=== PATIENT | female | born 1935 | race Caucasian/White ===

== ENCOUNTER 2017-03-18 13:10 | Inpatient (IN) | payer MEDICARE, MEDICAID ==
[~2017-03-18] VITALS: Ht 165.1 cm; Wt 111.6 kg
[2017-03-18] MEDS ORDERED: HUMALOG SQ (13:52)
[2017-03-18] MEDS ORDERED: PANT40TA4 PO (13:52)
[2017-03-18] MEDS ORDERED: PROCRIT SQ (13:52)
[2017-03-18] MEDS ORDERED: EZET10TA13 PO (13:52)
[2017-03-18] MEDS ORDERED: CLON0.1T PO (13:52)
[2017-03-18] MEDS ORDERED: PRED1TAB PO (13:52)
[2017-03-18] MEDS ORDERED: CHOL100062 PO (13:52)
[2017-03-18] MEDS ORDERED: HYDR-4075 PO (13:52)
[2017-03-18] MEDS ORDERED: LINA5TAB PO (13:52)
[2017-03-18] MEDS ORDERED: SIMV40TA5 PO (13:52)
[2017-03-18] MEDS ORDERED: METO-302 PO (13:52)
[2017-03-18] MEDS ORDERED: HYDR25TA4 PO (13:52)
[2017-03-18] MEDS ORDERED: IV NORMAL SALINE 1000 ML BAG IV ONE (14:15)
[2017-03-18 14:46] LABS: BASOPHILS % (AUTO) 0.4 % (0.0-2.0); EOSINOPHILS # (AUTO) 0.6 K/uL (0.0-0.7); EOSINOPHILS % (AUTO) 5.3 % (0.0-7.0); HEMATOCRIT 25.8 % (37-47); MEAN CORPUSCULAR HEMOGLOBIN 25.9 UUG (27.0-31.0); MEAN CORPUSCULAR HGB CONC 31 g/dL (32.0-37.0); MEAN CORPUSCULAR VOLUME 83.5 FL (81.0-99.0); MONOCYTES # (AUTO) 0.7 K/UL (0.1-1.30); MONOCYTES % (AUTO) 5.7 % (0.0-11.0); NEUTROPHILS # (AUTO) 9.8 K/UL (1.8-8.9); NEUTROPHILS % (AUTO) 80.6 % (38.5-71.5); PLATELET COUNT (AUTO) 344 K/UL (150-450); RED BLOOD CELL COUNT(AUTO) 3.09 MIL/UL (4.2-5.4); WHITE BLOOD COUNT (AUTO) 12.1 K/UL (4.0-11.2)
[2017-03-18 14:59] LABS: CARBON DIOXIDE 25 mmol/L (21-32); CHLORIDE 108 mmol/L (98-107); CREATININE 1.9 mg/dL (0.6-1.3); GLUCOSE 190 mg/dL (74-106); POTASSIUM 5.2 mmol/L (3.5-5.1); UREA NITROGEN, BLOOD 53 mg/dL (7-18)
[2017-03-18 15:05] LABS: ALANINE AMINOTRANSFERASE 29 U/L (14-59); ALKALINE PHOSPHATASE 73 U/L (50-136); ASPARTATE AMINOTRANSFERASE 18 U/L (15-37); BILIRUBIN,DIRECT 0.1 mg/dL (0.0-0.2); BILIRUBIN,TOTAL 0.5 mg/dL (0.2-1.0); TOTAL PROTEIN, SERUM 7.3 g/dL (6.4-8.2)
--- NOTE | 2017-03-18 15:15 | NUR ---
Pt back from CT, NAD noted at this time.
--- NOTE | 2017-03-18 15:30 | NUR ---
Dr Dao spoke with Andrew Falk via telephone, pt to be admitted to tele. SBAR report given to Leticia. Pt resting with NAD noted at this time.
--- NOTE | 2017-03-18 15:50 | NUR ---
Pt trans to [facility].
[2017-03-18] MEDS ORDERED: IV NS 1000 ML 1,000 ML IV PRN (16:10)
[2017-03-18 16:11] VITALS: BP 144/65
[2017-03-18] MEDS ORDERED: Z GUARD REMEDY PASTE 57 GM TUBE TOP PRN (16:15)
[2017-03-18] MEDS ORDERED: ONDANSETRON 4 MG/2 ML VIAL IV PRN (16:15)
[2017-03-18] MEDS ORDERED: ACETAMINOPHEN 325 MG TABLET PO PRN (16:15)
[2017-03-18] MEDS ORDERED: DEXTROSE 50% 50 ML DISP.SYRIN IV PRN (16:15)
[2017-03-18] MEDS ORDERED: FUROSEMIDE 40 MG/4 ML VIAL IV ONE (16:15)
--- NOTE | 2017-03-18 16:33 | NUR ---
81 YEAR OLD FEMALE ADMITTED FROM ER VIA GURNEY FOR ANEMIA IN STABLE CONDITION.ORIENT THE PT TO ROOM AND SURROUNDINGS. NOTIFIED FOR THE ADMISSION ,
[2017-03-18] MEDS: BLOOD SUGAR DIAGNOSTIC 1 EACH STRIP VI SCH ×2 (16:48→20:36)
[2017-03-18] MEDS: hydrALAZINE HCL 10 MG TABLET PO SCH (16:57)
[2017-03-18] MEDS ORDERED: INSULIN LISPRO SQ SCH (17:00)
[2017-03-18] MEDS ORDERED: INSULIN LISPRO PROTAMINE SQ SCH (17:00)
[2017-03-18] MEDS: INSULIN REGULAR, HUMAN 300 UNIT/3 ML VIAL SQ PRN ×2 (17:29→21:54)
--- NOTE | 2017-03-18 19:35 | NUR ---
PT RECEIVED IN BED, AWAKE. A/OX4. ABLE TO MAKE NEEDS KNOWN. V/S STABLE. IN NO ACUTE DISTRESS. NO C/O PAIN. PT 59 SINUS SILVESTRE WITH PAC'S ON TELE MONITOR. IVF INFUSING. COMMODE AT BEDSIDE. PT SAFETY MEASURES IMPLEMENTED. CALL LIGHT WITHIN REACH.
[2017-03-18 20:21] VITALS: BP 147/39
[2017-03-18] MEDS: SIMVASTATIN 40 MG TABLET PO SCH (20:31)
[2017-03-18] MEDS ORDERED: POTASSIUM CHLORIDE 20 MEQ TAB.PRT.SR PO ONE (21:00)
[2017-03-18] MEDS ORDERED: BUMETANIDE INJ 4 MG in IV DEXTROSE 5% 24 ML IV ONE (21:00)
[2017-03-18] MEDS ORDERED: BUMETANIDE 1 MG/4 ML VIAL ONE (21:40)
[2017-03-18] MEDS ORDERED: POTASSIUM CHLORIDE 20 MEQ TAB.PRT.SR ONE ×2 (21:41→21:59)
[2017-03-19 01:05] VITALS: BP 141/37
--- NOTE | 2017-03-19 02:58 | NUR ---
IV SITE FOUND INFILTRATED. IVF HELD. PT REFUSES TO START IV AT THIS TIME. PT STATES "THEY CAN NEVER FIND MY VEINS. I WILL WAIT TILL THE MORNING."
[2017-03-19 04:00] VITALS: BP 149/47
--- NOTE | 2017-03-19 06:19 | NUR ---
END OF SHIFT NOTES. PT HAD DIFFICULTY SLEEPING THROUGHOUT SHIFT. "PT STATES I AM NOT USED TO SLEEPING MEDICATION, I WILL JUST STICK IT OUT." PT IN STABLE CONDITION. IVF HELD. PT CONT TO REFUSE IV START. PT SINUS RHYTHM ON TELE. NEEDS ATTENDED. SAFETY MAINTAINED. CALL LIGHT WITHIN REACH.
[2017-03-19] MEDS: PANTOPRAZOLE SODIUM 40 MG TABLET.DR PO SCH (06:44)
[2017-03-19] MEDS: BLOOD SUGAR DIAGNOSTIC 1 EACH STRIP VI SCH ×4 (06:48→20:57)
[2017-03-19 06:54] LABS: BASOPHILS # (AUTO) 0.1 K/uL (0.0-8.0); BASOPHILS % (AUTO) 0.6 % (0.0-2.0); EOSINOPHILS # (AUTO) 0.8 K/uL (0.0-0.7); EOSINOPHILS % (AUTO) 6.8 % (0.0-7.0); HEMATOCRIT 26.2 % (37-47); HEMOGLOBIN 8.3 G/DL (12.0-16.0); LYMPHOCYTES # (AUTO) 1.8 K/UL (0.8-4.8); MEAN CORPUSCULAR HEMOGLOBIN 26.3 UUG (27.0-31.0); MEAN CORPUSCULAR HGB CONC 32 g/dL (32.0-37.0); MEAN CORPUSCULAR VOLUME 83.4 FL (81.0-99.0); MONOCYTES % (AUTO) 8.3 % (0.0-11.0); NEUTROPHILS # (AUTO) 8.6 K/UL (1.8-8.9); NEUTROPHILS % (AUTO) 69.3 % (38.5-71.5); PLATELET COUNT (AUTO) 356 K/UL (150-450); RED BLOOD CELL COUNT(AUTO) 3.15 MIL/UL (4.2-5.4); WHITE BLOOD COUNT (AUTO) 12.3 K/UL (4.0-11.2)
[2017-03-19 06:55] LABS: IRON, SERUM 24 ug/dL (50-175)
[2017-03-19 07:00] LABS: ALANINE AMINOTRANSFERASE 21 U/L (14-59); ALKALINE PHOSPHATASE 73 U/L (50-136); ASPARTATE AMINOTRANSFERASE 20 U/L (15-37); BILIRUBIN,TOTAL 0.7 mg/dL (0.2-1.0); CARBON DIOXIDE 26 mmol/L (21-32); CHLORIDE 107 mmol/L (98-107); CHOLESTEROL 78 mg/dL (<200); CREATININE 2.2 mg/dL (0.6-1.3); GLUCOSE 134 mg/dL (74-106); HDL CHOLESTEROL 35 mg/dL (40-60); MAGNESIUM 2.3 mg/dL (1.8-2.4); PHOSPHOROUS 5.5 mg/dL (2.5-4.9); POTASSIUM 4.8 mmol/L (3.5-5.1); TOTAL PROTEIN, SERUM 7.7 g/dL (6.4-8.2); TRIGLYCERIDES 110 MG/DL (30-150); UREA NITROGEN, BLOOD 52 mg/dL (7-18)
[2017-03-19 07:06] LABS: THYROID STIMULATING HORMONE 2.655 mIU/mL (0.358-3.740)
--- NOTE | 2017-03-19 08:00 | NUR ---
resting in bed, denies of pain, tele SB [id number], denies of shortness of breath, no nausea, needs attended, explained plan of care- verbalized understanding, call light within reach, states she takes her Zetia at nite- called pharmacy of pt's schedule
[2017-03-19] MEDS: CHOLECALCIFEROL 1,000 UNIT TABLET PO SCH (08:23)
[2017-03-19] MEDS: LINAGLIPTIN 5 MG TABLET PO SCH (08:24)
[2017-03-19] MEDS: hydrALAZINE HCL 10 MG TABLET PO SCH ×3 (08:24→17:16)
[2017-03-19] MEDS: predniSONE 10 MG TABLET PO SCH (08:24)
[2017-03-19] MEDS: METOPROLOL SUCCINATE XL 25 MG TAB.SR.24H PO SCH (08:25)
[2017-03-19] MEDS: INSULIN REGULAR, HUMAN 300 UNIT/3 ML VIAL SQ PRN ×3 (08:26→17:17)
--- NOTE | 2017-03-19 08:30 | NUR ---
states saline lock site hurts since last night, doesn't want another one restarted, states MD will have a midline inserted today
[2017-03-19] MEDS ORDERED: PANTOPRAZOLE SODIUM 40 MG TABLET.DR PO SCH (09:00)
[2017-03-19] MEDS ORDERED: predniSONE 1 MG TABLET PO SCH (09:00)
[2017-03-19] MEDS ORDERED: EZETIMIBE 10 MG TABLET PO SCH (09:00)
--- NOTE | 2017-03-19 11:00 | NUR ---
Misty Falk here- informed of no iv access- will insert midline- supplies needed prepared
[2017-03-19 11:39] VITALS: BP 135/56
[2017-03-19] MEDS ORDERED: FUROSEMIDE 40 MG/4 ML VIAL IV ONE (12:15)
--- NOTE | 2017-03-19 12:31 | NUR ---
2D Echo being done in the room
--- NOTE | 2017-03-19 14:30 | NUR ---
midline inserted on the right upper arm by Caleb Falk- tolerated well
[2017-03-19] MEDS: SOD FERRIC GLUC COMPLX/SUCROSE 125 MG in IV NORMAL SALINE 100 ML IV SCH (14:36)
[2017-03-19 16:00] VITALS: BP 125/53
--- NOTE | 2017-03-19 18:50 | NUR ---
no distress noted, all needs attended and met, voiding qs, safety and comfort measures maintained, call light within reach, tele SB 59, no dizziness noted
[2017-03-19 20:00] VITALS: BP 159/51
[2017-03-19] MEDS ORDERED: TEMAZEPAM 30 MG CAPSULE PO PRN (20:15)
[2017-03-19] MEDS ORDERED: CYANOCOBALAMIN 100 MCG TABLET PO SCH (20:15)
[2017-03-19] MEDS ORDERED: CYANOCOBALAMIN 100 MCG TABLET PO ONE (20:15)
[2017-03-19] MEDS ORDERED: POTASSIUM CHLORIDE 20 MEQ TAB.PRT.SR PO ONE (20:15)
[2017-03-19] MEDS ORDERED: MAGNESIUM OXIDE 400 MG TABLET PO ONE (20:15)
--- NOTE | 2017-03-19 20:25 | NUR ---
patient awake,alert, oriented,c/o severe cramping to legs, was notified,orders received,medication admin as ordered,NSR/SB on tele monitor,patient using bedside commode,instructed patient to call for assistance.
[2017-03-19] MEDS ORDERED: CYANOCOBALAMIN 100 MCG TABLET ONE (20:32)
[2017-03-19] MEDS: SIMVASTATIN 40 MG TABLET PO SCH (20:44)
[2017-03-19] MEDS: EZETIMIBE 10 MG TABLET PO SCH (20:44)
[2017-03-19] MEDS: CLONIDINE HCL 0.1 MG TABLET PO PRN (23:35)
[2017-03-20 00:19] VITALS: BP 166/43
--- NOTE | 2017-03-20 00:30 | NUR ---
PATIENT SLEPT WELL,NOT REQUIRED SLEEPING PILL, SB ON MONITOR, NO FURTHER LEG CRAMPING PER PATIENT.
[2017-03-20 04:00] VITALS: BP 145/52
[2017-03-20] MEDS: BLOOD SUGAR DIAGNOSTIC 1 EACH STRIP VI SCH ×4 (06:09→21:02)
[2017-03-20] MEDS: PANTOPRAZOLE SODIUM 40 MG TABLET.DR PO SCH (06:10)
--- NOTE | 2017-03-20 06:43 | NUR ---
VITAL SIGNS STABLE,PATIENT REPORTED REMAINS FEELING WEAK,CONTINUE CLOSELY MONITOR.
[2017-03-20] MEDS ORDERED: TEMAZEPAM 15 MG CAPSULE PO PRN (07:15)
[2017-03-20] MEDS: CHOLECALCIFEROL 1,000 UNIT TABLET PO SCH (08:17)
[2017-03-20] MEDS: LINAGLIPTIN 5 MG TABLET PO SCH (08:17)
[2017-03-20] MEDS: predniSONE 10 MG TABLET PO SCH (08:17)
[2017-03-20] MEDS: hydrALAZINE HCL 10 MG TABLET PO SCH ×3 (08:18→16:41)
[2017-03-20] MEDS: METOPROLOL SUCCINATE XL 25 MG TAB.SR.24H PO SCH (08:18)
[2017-03-20] MEDS: INSULIN REGULAR, HUMAN 300 UNIT/3 ML VIAL SQ PRN ×4 (08:20→21:05)
--- NOTE | 2017-03-20 09:00 | NUR ---
PT AWAKE IN BED, IN NO ACUTE DISTRESS, MIDLINE INTACT. MORNING MEDICATIONS GIVEN. ALL SAFETY AND COMFORT MEASURES ATTENDED TO, BED ALARM ON. CALL LIGHT IN REACH WILL CONTINUE TO MONITOR
[2017-03-20 12:06] VITALS: BP 132/55
[2017-03-20] MEDS: SOD FERRIC GLUC COMPLX/SUCROSE 125 MG in IV NORMAL SALINE 100 ML IV SCH (14:00)
[2017-03-20 15:46] VITALS: BP 126/52
--- NOTE | 2017-03-20 18:16 | NUR ---
PT AMBULATED ONCE AROUND THE NURSES STATION WITH WALKER AND RN, NO DISTRESS NOTED, WELL TOLERATED. NO CHANGES NOTED THROUGHOUT SHIFT, ALL SAFETY AND COMFORT MEASURES MAINTAINED, CALL LIGHT IN REACH
--- NOTE | 2017-03-20 18:19 | NUR ---
CALLED PHARMACY FOR KENALOG CREAM DUE AT 1700, TECH SAID WOULD BRING UP
[2017-03-20] MEDS: TRIAMCINOLONE ACET 0.1% CREAM 15 GM TUBE TOP SCH (18:41)
--- NOTE | 2017-03-20 20:00 | NUR ---
RECEIVED PATIENT AWAKE IN BED. A/O X4. DENIES PAIN BUT DOES C/O SEVERE ITCHING DUE TO RASH. NO RESP. DISTRESS NOTED. MID-LINE NOTED TO RIGHT UPPER ARM, INTACT AND PATENT. VSS. CALL LIGHT IN REACH. ALL NEEDS ATTENDED. WILL CONTINUE TO MONITOR.
[2017-03-20 20:10] VITALS: BP 125/62
[2017-03-20] MEDS ORDERED: diphenhydrAMINE 50 MG CAPSULE PO PRN (20:45)
[2017-03-20] MEDS: SIMVASTATIN 40 MG TABLET PO SCH (21:01)
[2017-03-20] MEDS: EZETIMIBE 10 MG TABLET PO SCH (21:01)
--- NOTE | 2017-03-20 21:05 | NUR ---
PATIENT C/O INTENSE ITCHING. KENALOG CREAM APPLIED PREVIOUSLY BY ADRIAN COREY, BUT PATIENT STATES CREAM IS INEFFECTIVE. CALLED DR. NORWOOD FOR FURTHER ORDERS. RECEIVED NEW ORDER FOR PATIENT TO HAVE BENADRYL PO AND PATIENT GIVEN 50MG PO PRN ORDERED FOR ITCHING. WILL CONTINUE TO MONITOR. ALL NEEDS ATTENDED.
--- NOTE | 2017-03-20 23:00 | NUR ---
PATIENT RESTING IN BED. BENADRYL EFFECTIVE. NO C/O ITCHING AT THIS TIME. CALL LIGHT IN REACH. ALL NEEDS ATTENDED. WILL CONTINUE TO MONITOR.
[2017-03-21 04:52] VITALS: BP 164/47
[2017-03-21] MEDS: CLONIDINE HCL 0.1 MG TABLET PO PRN (05:02)
[2017-03-21] MEDS: PANTOPRAZOLE SODIUM 40 MG TABLET.DR PO SCH (06:04)
--- NOTE | 2017-03-21 06:48 | NUR ---
PATIENT AWAKE IN BED. DENIES PAIN OR DISCOMFORT. NO RESP. DISTRESS NOTED. CALL LIGHT IN REACH. ALL NEEDS ATTENDED. WILL CONTINUE TO MONITOR.
[2017-03-21] MEDS: BLOOD SUGAR DIAGNOSTIC 1 EACH STRIP VI SCH ×2 (06:49→11:36)
[2017-03-21 06:57] LABS: BASOPHILS # (AUTO) 0.1 K/uL (0.0-8.0); BASOPHILS % (AUTO) 0.5 % (0.0-2.0); EOSINOPHILS % (AUTO) 8.8 % (0.0-7.0); HEMATOCRIT 26.7 % (37-47); HEMOGLOBIN 8.5 G/DL (12.0-16.0); LYMPHOCYTES # (AUTO) 1.7 K/UL (0.8-4.8); LYMPHOCYTES % (AUTO) 15.2 % (20.5-51.5); MEAN CORPUSCULAR HEMOGLOBIN 26.3 UUG (27.0-31.0); MEAN CORPUSCULAR HGB CONC 32 g/dL (32.0-37.0); MEAN CORPUSCULAR VOLUME 82.6 FL (81.0-99.0); MONOCYTES # (AUTO) 0.9 K/UL (0.1-1.30); MONOCYTES % (AUTO) 8.6 % (0.0-11.0); NEUTROPHILS # (AUTO) 7.3 K/UL (1.8-8.9); NEUTROPHILS % (AUTO) 66.9 % (38.5-71.5); PLATELET COUNT (AUTO) 351 K/UL (150-450); RED BLOOD CELL COUNT(AUTO) 3.23 MIL/UL (4.2-5.4)
[2017-03-21 07:05] LABS: CARBON DIOXIDE 29 mmol/L (21-32); CHLORIDE 106 mmol/L (98-107); CREATININE 2.2 mg/dL (0.6-1.3); GLUCOSE 154 mg/dL (74-106); MAGNESIUM 2.1 mg/dL (1.8-2.4); PHOSPHOROUS 4.4 mg/dL (2.5-4.9); POTASSIUM 3.9 mmol/L (3.5-5.1); UREA NITROGEN, BLOOD 49 mg/dL (7-18)
--- NOTE | 2017-03-21 07:30 | NUR ---
NO SIGNS OF PAIN OR DISTRESS, WANTS TO GO HOME
[2017-03-21] MEDS: INSULIN REGULAR, HUMAN 300 UNIT/3 ML VIAL SQ PRN ×2 (08:08→11:38)
[2017-03-21] MEDS: LINAGLIPTIN 5 MG TABLET PO SCH (08:09)
[2017-03-21] MEDS: METOPROLOL SUCCINATE XL 25 MG TAB.SR.24H PO SCH (08:09)
[2017-03-21] MEDS: CHOLECALCIFEROL 1,000 UNIT TABLET PO SCH (08:09)
[2017-03-21] MEDS: TRIAMCINOLONE ACET 0.1% CREAM 15 GM TUBE TOP SCH (08:11)
[2017-03-21] MEDS: hydrALAZINE HCL 10 MG TABLET PO SCH ×2 (08:11→12:13)
[2017-03-21] MEDS: predniSONE 10 MG TABLET PO SCH (08:11)
[2017-03-21 11:20] VITALS: BP 137/55
--- NOTE | 2017-03-21 12:14 | NUR ---
HYDRALAZINE NOT GIVEN HR 51
[2017-03-21] MEDS: SOD FERRIC GLUC COMPLX/SUCROSE 125 MG in IV NORMAL SALINE 100 ML IV SCH (14:07)
[2017-03-21 15:16] VITALS: BP 145/52
--- NOTE | 2017-03-21 16:00 | NUR ---
DR REDDY NOTIFIED ABOUT PATIENT WANTING TO GO [place], WITH ORDERS
--- NOTE | 2017-03-21 16:10 | NUR ---
MID WIFE MADE AWARE OF PATIENT NEEDING HOME HEALTH FOLLOW-UP FOR INSULIN ADMINISTRATION.
--- NOTE | 2017-03-21 16:43 | NUR ---
DISCHARGE HOME WITH ASSISTED LIVING HOME HEALTH FOLLOW-UP FOR INSULIN ADMINISTRATION. PATIENT ACCOMPANIED BY BROTHER WITH DISCHARGE INSTRUCTION OF HOME MEDS DONE BY PHARMACIST
[2017-03-24] MEDS ORDERED: EPOETIN ALFA 20,000 UNIT/ML ML SQ SCH (09:00)
== END 2017-03-21 16:40 | disposition home health service (06) | DRG 595 ==
LOC: ER 13:16 → TELE 15:45 → MED 03-20 12:25
PROVIDERS: ADMIT Nurse Practitioner Acute Care; ATTEND Nurse Practitioner Acute Care
PROC: 05H533Z Insertion of Infusion Device into Right Subclavian Vein, Percutaneous Approach (ICD-10-PCS; principal; 2017-03-19)
DX: L12.0 Bullous pemphigoid (principal); I21.4 Non-ST elevation (NSTEMI) myocardial infarction; N17.0 Acute kidney failure with tubular necrosis; I50.31 Acute diastolic (congestive) heart failure; I13.0 Hypertensive heart and chronic kidney disease with heart failure and stage 1 through stage 4 chronic kidney disease, or unspecified chronic kidney disease; N18.4 Chronic kidney disease, stage 4 (severe); Z68.41 Body mass index [BMI] 40.0-44.9, adult; I25.10 Atherosclerotic heart disease of native coronary artery without angina pectoris; E11.22 Type 2 diabetes mellitus with diabetic chronic kidney disease; D64.9 Anemia, unspecified; E66.9 Obesity, unspecified; E78.5 Hyperlipidemia, unspecified; I35.0 Nonrheumatic aortic (valve) stenosis; M89.9 Disorder of bone, unspecified; Z85.820 Personal history of malignant melanoma of skin; Z79.899 Other long term (current) drug therapy; Z86.19 Personal history of other infectious and parasitic diseases; Z98.890 Other specified postprocedural states; Z90.710 Acquired absence of both cervix and uterus; R29.6 Repeated falls
CPT/HCPCS: 36415; 36569; 70030-TC; 70450; 71010; 82533; 83550; 83605; 83690; 83735; 84100; 84443; 85025; 85651; 85730; 87040; 93005; 93307; A4663; J1815; J1940; J2916; J3490; J7030; J7060; J7512; Q0163